=== PATIENT | female | born 1935 | race Two or more races ===

== ENCOUNTER 2018-03-18 14:18 | Outpatient (CLI) | payer OTHER ==
[~2018-03-18 14:18] MED LIST: ARICEPT10 MG PO; BENADRYL50 MG PO; BRAIN MIGHT-DH1 EACH; DEPAKOTE ER250 MG PO; RESTORIL15 M1 PO; VIBATIV750 MG PO; ZYPREXA10 MG PO
== END 2018-03-18 17:00 | disposition home or self-care (01) ==
LOC: TOM 14:18
DX: F31.0 Bipolar disorder, current episode hypomanic (principal); Z28.3 Underimmunization status; I69.30 Unspecified sequelae of cerebral infarction

== ENCOUNTER 2018-12-23 09:09 | Outpatient (CLI) | payer OTHER | END 2018-12-23 09:11 | disposition home or self-care (01) | LOC: TOM 09:09 | DX: F31.2 Bipolar disorder, current episode manic severe with psychotic features (principal); G30.0 Alzheimer's disease with early onset; G26 Extrapyramidal and movement disorders in diseases classified elsewhere ==

== ENCOUNTER 2019-10-24 09:30 | Outpatient (CLI) | payer OTHER | END 2019-10-24 15:00 | disposition home or self-care (01) | LOC: MRI 09:30 | DX: R47.01 Aphasia (principal); F01.51 Vascular dementia, unspecified severity, with behavioral disturbance; I63.81 Other cerebral infarction due to occlusion or stenosis of small artery | CPT/HCPCS: 70551 ==

== ENCOUNTER 2020-12-18 21:55 | Inpatient (IN) | payer OTHER ==
[~2020-12-18] VITALS: Wt 5.0 kg
[2020-12-18] MEDS ORDERED: PRE PROTEIN (22:22)
[2020-12-18] MEDS ORDERED: VASOFLEX D1 CA1 EACH (22:22)
[2020-12-18] MEDS ORDERED: CAPOTEN12.5 MG (22:22)
[2020-12-18] MEDS ORDERED: CARVEDILOL6.25 MG (22:22)
[2020-12-18] MEDS ORDERED: HYDROCHLOROTH12.5 MG (22:23)
[2020-12-18] MEDS ORDERED: SERTRALINE20 MG/1 ML (22:23)
[2020-12-18] MEDS ORDERED: ELIQUIS5 MG (22:23)
--- NOTE | 2020-12-18 22:24 | NUR ---
SE RECIBE PTE EN AMBULANCIA ,DESORIENTADA ,OXIGENANDO 82 % SE AUTO MUTILA,TIENE LOS OJOS ROJOS,REFIEREN PARAMEDICOS QUE ESTABA [place] POR LA NARIZ,LLEGO VCANALIZADA MANO IZQUIERDA.
--- NOTE | 2020-12-18 22:52 | NUR ---
SE RECIBE PTE FEMENINA ALERTA Y DESORIENTADA ACOMPANADA DE FAMILOIAR,ESTA LLEGA EN AMBULANCIA Y ES EVALUADA POR ,SE ORIENTA A FAMILIAR SOBRE ORDEN MEDICA,SE JAGDEEP MUESTRAS Y SE ENVIAN A LABORATORIO,SE CABALIZA Y COLOCA H/L PATENTE ARCHIE DE EDEMA Y EBNROJECIMIENT,SE OBSERVA A PTE SANGRADO SECO EN LA BOCA Y SE LIMPIA ,SE REALIZA X RAY,SE COLOCA BARNES SIGUIENDO MEDIDAS ASEPTICAS, SE CONECTA A MONITOR CARDIACO CDONSTANTE Y OXIMETRIA CONTINUA,FAMILIAR DE PTE FIRMA DNI Y DNR,SE MANTIENE A PTE EN OBSERVACION POR CAMBIOS.
--- NOTE | 2020-12-18 23:50 | NUR ---
SE RECIBE PTE FEMENAI DE 85 YRS ALERTA CONCIETNE Y TRANQUILA EN CAMA EN LA UNIDAD DE CHEST PAIN CONECTADA A MONITOR CARDICO Y OXIMENTRIA. PTE SE RECIBE CON H/L PANTENTE EN ANTEBRASO SANDRA. CANULA NASAL A 3 LTRS.SE OBSERVA PTE CON ALZHEIMERAVANZADO ,PULMONIA POR ASPIRACION EN EL HOGAR DONDE RECIDE. SE OBNSERVA PTE RESTRINGIDA X 2 CON CONSENTIMIENTO FIRMADO.SE COMIENZA EN ANTIBIOTICO DE ROCEPHING 1 GR. IV Y SE COMIENZAEN .9NSS A 75 ML HRS, SE LE NOTIFICA A MSCHACORTAS TERAPIASTA RESPIRATORIA LA ORDEN DE TERAPIA Y ABG'S . SE LE SUBCIONA EN VARIAS OCASIONES Y SE OBSERVA SECRECIONES CON SRI BRILLANTE Y CUOAGULOS. SE MANTIENE BAJO OBSERVACION POR CAMBIOS.
--- NOTE | 2020-12-18 23:58 | NUR ---
SE OBSERVA PTE CON FOLIE CATHTE CON UN OUPUT DE COLOR AMARILLO MEÑO. SE MANTIENE BAJO OBSERVACION.
--- NOTE | 2020-12-19 00:26 | NUR ---
SE LE CONECTA A NON-REBREDIN MASK A100% POR ORDEN MEDICA. DEL DR.MORALES DE LA PAZ.SE MANTIENE BAJO OBSERVACION POR CAMBIOS
[2020-12-24] MEDS ORDERED: ARICEPT10 MG PO (09:21)
[2020-12-24] MEDS ORDERED: LIPITOR20 MG PO (09:22)
[2020-12-24] MEDS ORDERED: CARVEDILOL6.25 MG PO (09:22)
[2020-12-24] MEDS ORDERED: ST. JOSEPH ASPI81 M2 PO (09:23)
[2020-12-24] MEDS ORDERED: DEPAKOTE ER250 MG PO (09:23)
[2020-12-24] MEDS ORDERED: ZYPREXA10 MG PO (09:24)
[2020-12-24] MEDS ORDERED: TOBRADEX EYE DR10 ML OP (09:25)
[2020-12-24] MEDS ORDERED: PRE PROTEIN GT (09:26)
== END 2020-12-24 16:51 | DRG 178 ==
LOC: ER 21:55 → MEDI 12-19 00:46
PROVIDERS: ADMIT Internal Medicine Hematology & Oncology; ATTEND Internal Medicine Hematology & Oncology
PROC: 30233N1 Transfusion of Nonautologous Red Blood Cells into Peripheral Vein, Percutaneous Approach (ICD-10-PCS; principal; 2020-12-19)
PROC: 02HV33Z Insertion of Infusion Device into Superior Vena Cava, Percutaneous Approach (ICD-10-PCS; 2020-12-19)
PROC: 4A12X4Z Monitoring of Cardiac Electrical Activity, External Approach (ICD-10-PCS; 2020-12-19)
PROC: 0DH63UZ Insertion of Feeding Device into Stomach, Percutaneous Approach (ICD-10-PCS; 2020-12-20)
PROC: 3E0G76Z Introduction of Nutritional Substance into Upper GI, Via Natural or Artificial Opening (ICD-10-PCS; 2020-12-21)
PROC: B24BYZZ Ultrasonography of Heart with Aorta using Other Contrast (ICD-10-PCS; 2020-12-21)
DX: J69.8 Pneumonitis due to inhalation of other solids and liquids (principal); D68.32 Hemorrhagic disorder due to extrinsic circulating anticoagulants; D62 Acute posthemorrhagic anemia; R04.0 Epistaxis; I69.391 Dysphagia following cerebral infarction; R13.10 Dysphagia, unspecified; R09.02 Hypoxemia; E86.0 Dehydration; I10 Essential (primary) hypertension; G30.1 Alzheimer's disease with late onset; F02.80 Dementia in other diseases classified elsewhere, unspecified severity, without behavioral disturbance, psychotic disturbance, mood disturbance, and anxiety; Z20.822 Contact with and (suspected) exposure to COVID-19

== ENCOUNTER 2021-01-28 17:20 | Inpatient (IN) | payer OTHER ==
[~2021-01-28] VITALS: Ht 160 cm
[~2021-01-28 17:20] MED LIST changes: +CAPOTEN12.5 MG; +CARVEDILOL6.25 MG; +CARVEDILOL6.25 MG PO; +ELIQUIS5 MG; +HYDROCHLOROTH12.5 MG; +LIPITOR20 MG PO; +PRE PROTEIN; +PRE PROTEIN GT; +SERTRALINE20 MG/1 ML; +ST. JOSEPH ASPI81 M2 PO; +TOBRADEX EYE DR10 ML OP; +VASOFLEX D1 CA1 EACH
--- NOTE | 2021-01-28 17:39 | NUR ---
SE RECIBE PACIENTE ALERTA, LLEGA EN AMBULANCIA ACOMPANADO DE PERSONAL DE AMBULANCIA REFIEREN TRAEN PARA PONER PEG , QUE SE ARRANCO, SE ESTIMAN S/V SE UBICA EN YOVANNY # 13 CON BARRANDAS ELEVADAS A NIVEL MAS BAJO. PTE ESTA DAVON.
[2021-01-31] MEDS ORDERED: BENADRYL50 MG PO (16:53)
[2021-01-31] MEDS ORDERED: ARICEPT10 MG PO (16:54)
[2021-01-31] MEDS ORDERED: LIPITOR20 MG PO (16:55)
[2021-01-31] MEDS ORDERED: ZYPREXA10 MG PO (16:55)
[2021-01-31] MEDS ORDERED: ST. JOSEPH ASPI81 M2 PO (16:55)
[2021-01-31] MEDS ORDERED: Depakote 250MG DR TA PO (16:55)
[2021-01-31] MEDS ORDERED: RESTORIL15 MG PO (16:56)
== END 2021-01-31 18:52 | disposition home or self-care (01) | DRG 395 ==
LOC: ER 17:20 → MEDI 20:39
PROVIDERS: ADMIT Internal Medicine Hematology & Oncology; ATTEND Internal Medicine Hematology & Oncology
PROC: 0DH63UZ Insertion of Feeding Device into Stomach, Percutaneous Approach (ICD-10-PCS; principal; 2021-01-29)
DX: K94.23 Gastrostomy malfunction (principal); G30.8 Other Alzheimer's disease; F02.80 Dementia in other diseases classified elsewhere, unspecified severity, without behavioral disturbance, psychotic disturbance, mood disturbance, and anxiety; I10 Essential (primary) hypertension; D72.828 Other elevated white blood cell count; R13.19 Other dysphagia; Z20.822 Contact with and (suspected) exposure to COVID-19

== ENCOUNTER 2021-04-26 11:16 | Inpatient (IN) | payer OTHER ==
[~2021-04-26] VITALS: Ht 152.4 cm; Wt 54.4 kg
[~2021-04-26 11:16] MED LIST changes: +Depakote 250MG DR TA PO; +RESTORIL15 MG PO
[2021-04-26] MEDS ORDERED: DONEPEZIL HCL10 MG PO (11:27)
[2021-04-26] MEDS ORDERED: DIVALPROEX SOD250 MG PO (11:27)
[2021-04-26] MEDS ORDERED: ATORVASTATIN CA20 MG PO (11:27)
[2021-04-26] MEDS ORDERED: OLANZAPINE2.5 MG PO (11:27)
[2021-04-26] MEDS ORDERED: CLOPIDOGREL BIS75 MG PO (11:28)
[2021-04-26] MEDS ORDERED: CARVEDILOL6.25 M1 PO (11:30)
--- NOTE | 2021-04-26 11:32 | NUR ---
SE RECIBE PACIENTE ALERTA, EN AMBULANCIA REFIERE PARAMEDICO REFIERE SE NANCY TUBO DE GASTROSTOMIA, EN LA MADRUGADA Y PRESENTO EPISODIO DE VOPMITO SE ESTIMAN S/V SE UBICA EN AREA DE OBSERVACION YOVANNY # 13
--- NOTE | 2021-04-26 11:50 | NUR ---
PTE ADMITIDA POR EL DR TATE
[2021-05-02] MEDS ORDERED: DONEPEZIL HCL10 MG PO (18:39)
[2021-05-02] MEDS ORDERED: BENADRYL50 MG PO (18:39)
[2021-05-02] MEDS ORDERED: ATORVASTATIN CA20 MG PO (18:40)
[2021-05-02] MEDS ORDERED: CARVEDILOL6.25 M1 PO (18:41)
[2021-05-02] MEDS ORDERED: ST. JOSEPH ASPI81 M2 PO (18:41)
[2021-05-02] MEDS ORDERED: DIVALPROEX SOD250 MG PO (18:42)
[2021-05-02] MEDS ORDERED: RESTORIL15 MG PO (18:42)
[2021-05-02] MEDS ORDERED: PRE PROTEIN GT (18:44)
[2021-05-02] MEDS ORDERED: TOBRADEX EYE DR10 ML OP (18:44)
== END 2021-05-02 23:01 | disposition home or self-care (01) | DRG 326 ==
LOC: ER 11:16 → MEDI 13:14
PROVIDERS: ADMIT Internal Medicine Hematology & Oncology; ATTEND Internal Medicine Hematology & Oncology
PROC: CB2YYZZ Tomographic (Tomo) Nuclear Medicine Imaging of Respiratory System using Other Radionuclide (ICD-10-PCS; 2021-04-26)
PROC: 0DP64UZ Removal of Feeding Device from Stomach, Percutaneous Endoscopic Approach (ICD-10-PCS; principal; 2021-04-30)
PROC: 0DH63UZ Insertion of Feeding Device into Stomach, Percutaneous Approach (ICD-10-PCS; 2021-04-30)
DX: K94.23 Gastrostomy malfunction (principal); A41.89 Other specified sepsis; N39.0 Urinary tract infection, site not specified; R13.19 Other dysphagia; I10 Essential (primary) hypertension; Z20.822 Contact with and (suspected) exposure to COVID-19; E86.0 Dehydration; E87.5 Hyperkalemia; G30.8 Other Alzheimer's disease; F02.80 Dementia in other diseases classified elsewhere, unspecified severity, without behavioral disturbance, psychotic disturbance, mood disturbance, and anxiety; Z74.01 Bed confinement status; B95.2 Enterococcus as the cause of diseases classified elsewhere

== ENCOUNTER 2021-07-02 10:58 | Inpatient (IN) | payer OTHER ==
[~2021-07-02] VITALS: Ht 157.5 cm; Wt 54.4 kg
[~2021-07-02 10:58] MED LIST changes: +ATORVASTATIN CA20 MG PO; +CARVEDILOL6.25 M1 PO; +CLOPIDOGREL BIS75 MG PO; +DIVALPROEX SOD250 MG PO; +DONEPEZIL HCL10 MG PO; +OLANZAPINE2.5 MG PO
[2021-07-02] MEDS ORDERED: GOCOVRI68.5 MG (11:27)
[2021-07-02] MEDS ORDERED: PEPCID AC20 MG (11:27)
[2021-07-02] MEDS ORDERED: DEPAKOTE ER250 MG PO (11:29)
[2021-07-02] MEDS ORDERED: CARVEDILOL6.25 MG (11:29)
[2021-07-02] MEDS ORDERED: ZYPREXA20 MG (11:30)
[2021-07-02] MEDS ORDERED: ARICEPT10 MG PO (11:30)
[2021-07-02] MEDS ORDERED: SYSTANE GEL EYE10 ML (11:31)
[2021-07-04] MEDS ORDERED: BENADRYL50 MG PO (18:09)
[2021-07-04] MEDS ORDERED: ATORVASTATIN CA20 MG PO (18:09)
[2021-07-04] MEDS ORDERED: ARICEPT10 MG PO (18:09)
[2021-07-04] MEDS ORDERED: CARVEDILOL6.25 MG PO (18:10)
[2021-07-04] MEDS ORDERED: ST. JOSEPH ASPI81 M2 PO (18:10)
[2021-07-04] MEDS ORDERED: DEPAKOTE ER250 MG PO (18:11)
[2021-07-04] MEDS ORDERED: RESTORIL15 MG PO (18:11)
[2021-07-04] MEDS ORDERED: PEPCID AC20 MG PO (18:12)
[2021-07-04] MEDS ORDERED: PRE PROTEIN GT (18:12)
== END 2021-07-04 20:30 | disposition home or self-care (01) | DRG 327 ==
LOC: ER 10:58 → SEC-K 13:05 → MEDJ 17:19
PROVIDERS: ADMIT Internal Medicine Hematology & Oncology; ATTEND Internal Medicine Hematology & Oncology
PROC: 0DP64UZ Removal of Feeding Device from Stomach, Percutaneous Endoscopic Approach (ICD-10-PCS; principal; 2021-07-02)
PROC: 0DH63UZ Insertion of Feeding Device into Stomach, Percutaneous Approach (ICD-10-PCS; 2021-07-02)
DX: K94.23 Gastrostomy malfunction (principal); E44.0 Moderate protein-calorie malnutrition; R13.19 Other dysphagia; I10 Essential (primary) hypertension; Z74.01 Bed confinement status; E86.0 Dehydration; E87.8 Other disorders of electrolyte and fluid balance, not elsewhere classified; Z20.822 Contact with and (suspected) exposure to COVID-19; G30.1 Alzheimer's disease with late onset; F02.80 Dementia in other diseases classified elsewhere, unspecified severity, without behavioral disturbance, psychotic disturbance, mood disturbance, and anxiety

== ENCOUNTER 2021-07-09 22:45 | Inpatient (IN) | payer OTHER ==
[~2021-07-09] VITALS: Ht 162.6 cm; Wt 54.4 kg
[~2021-07-09 22:45] MED LIST changes: +GOCOVRI68.5 MG; +PEPCID AC20 MG; +PEPCID AC20 MG PO; +SYSTANE GEL EYE10 ML; +ZYPREXA20 MG
--- NOTE | 2021-07-09 23:02 | NUR ---
PTE SE RECIBE POR PROBLEMA CON LA GASTROSTOMY REFIERE PARAMEDICO Y FAMILIAR.
[2021-07-13] MEDS ORDERED: ATORVASTATIN CA20 MG PO (10:25)
[2021-07-13] MEDS ORDERED: BENADRYL50 MG PO (10:25)
[2021-07-13] MEDS ORDERED: CARVEDILOL6.25 MG PO (10:25)
[2021-07-13] MEDS ORDERED: ARICEPT10 MG PO (10:25)
[2021-07-13] MEDS ORDERED: GOCOVRI68.5 MG PO (10:26)
[2021-07-13] MEDS ORDERED: DEPAKOTE ER250 MG PO (10:26)
[2021-07-13] MEDS ORDERED: ST. JOSEPH ASPI81 M2 PO (10:26)
[2021-07-13] MEDS ORDERED: HALOPERIDOL2 MG PO (10:27)
[2021-07-13] MEDS ORDERED: RESTORIL15 MG PO (10:28)
== END 2021-07-13 14:17 | DRG 394 ==
LOC: ER 22:45 → SURH 07-10 00:03 → SEC-K 07-10 00:03 → SURH 07-10 01:07
PROVIDERS: ADMIT Internal Medicine Hematology & Oncology; ATTEND Internal Medicine Hematology & Oncology
PROC: 0DH63UZ Insertion of Feeding Device into Stomach, Percutaneous Approach (ICD-10-PCS; principal; 2021-07-11)
DX: K94.23 Gastrostomy malfunction (principal); N39.0 Urinary tract infection, site not specified; E44.0 Moderate protein-calorie malnutrition; Y83.8 Other surgical procedures as the cause of abnormal reaction of the patient, or of later complication, without mention of misadventure at the time of the procedure; E86.0 Dehydration; I69.391 Dysphagia following cerebral infarction; G30.1 Alzheimer's disease with late onset; F02.80 Dementia in other diseases classified elsewhere, unspecified severity, without behavioral disturbance, psychotic disturbance, mood disturbance, and anxiety; B96.20 Unspecified Escherichia coli [E. coli] as the cause of diseases classified elsewhere

== ENCOUNTER 2021-10-19 20:55 | Inpatient (IN) | payer OTHER ==
[~2021-10-19] VITALS: Ht 152.4 cm; Wt 63.5 kg
[~2021-10-19 20:55] MED LIST changes: +GOCOVRI68.5 MG PO; +HALOPERIDOL2 MG PO
[2021-10-21] MEDS ORDERED: OLANZAPINE2.5 MG (08:59)
[2021-10-29] MEDS ORDERED: AMOX250 GT (17:35)
[2021-10-29] MEDS ORDERED: ST. JOSEPH ASPI81 M2 PO (17:41)
[2021-10-29] MEDS ORDERED: CARVEDILOL6.25 MG PO (17:41)
[2021-10-29] MEDS ORDERED: GOCOVRI68.5 MG PO (17:41)
[2021-10-29] MEDS ORDERED: HALOPERIDOL2 MG PO (17:41)
[2021-10-29] MEDS ORDERED: DIVALPROEX SOD250 M1 PO (17:41)
[2021-10-29] MEDS ORDERED: ARICEPT10 MG PO (17:41)
[2021-10-29] MEDS ORDERED: NEO-POLYCIN EY3.5 GM OP (17:41)
[2021-10-29] MEDS ORDERED: RESTORIL15 MG PO (17:41)
[2021-10-29] MEDS ORDERED: ATORVASTATIN CA20 MG PO (17:41)
[2021-10-29] MEDS ORDERED: BENADRYL25 MG PO (17:41)
[2021-10-29] MEDS ORDERED: PROTEINEX-18 LI30 ML PO (17:41)
== END 2021-10-29 22:07 | DRG 689 ==
LOC: ER 20:55 → SURH 23:44
PROVIDERS: ADMIT Internal Medicine Hematology & Oncology; ATTEND Internal Medicine Hematology & Oncology
PROC: BW24YZZ Computerized Tomography (CT Scan) of Chest and Abdomen using Other Contrast (ICD-10-PCS; 2021-10-19)
PROC: 02HV33Z Insertion of Infusion Device into Superior Vena Cava, Percutaneous Approach (ICD-10-PCS; 2021-10-21)
PROC: 0HBQXZX Excision of Finger Nail, External Approach, Diagnostic (ICD-10-PCS; principal; 2021-10-26)
DX: N39.0 Urinary tract infection, site not specified (principal); A41.89 Other specified sepsis; E87.0 Hyperosmolality and hypernatremia; F31.89 Other bipolar disorder; L02.511 Cutaneous abscess of right hand; E44.0 Moderate protein-calorie malnutrition; B35.1 Tinea unguium; B96.4 Proteus (mirabilis) (morganii) as the cause of diseases classified elsewhere; L03.011 Cellulitis of right finger; L89.159 Pressure ulcer of sacral region, unspecified stage; R13.19 Other dysphagia; E87.6 Hypokalemia; R00.0 Tachycardia, unspecified; D72.828 Other elevated white blood cell count; H01.006 Unspecified blepharitis left eye, unspecified eyelid; H01.003 Unspecified blepharitis right eye, unspecified eyelid; I10 Essential (primary) hypertension; G30.8 Other Alzheimer's disease; R41.82 Altered mental status, unspecified; E11.65 Type 2 diabetes mellitus with hyperglycemia; Z79.4 Long term (current) use of insulin; F02.80 Dementia in other diseases classified elsewhere, unspecified severity, without behavioral disturbance, psychotic disturbance, mood disturbance, and anxiety; E86.0 Dehydration; Z74.01 Bed confinement status; Z93.1 Gastrostomy status; Z20.822 Contact with and (suspected) exposure to COVID-19

== ENCOUNTER 2021-12-23 04:20 | Inpatient (IN) | payer OTHER ==
[~2021-12-23] VITALS: Ht 154.9 cm; Wt 74.8 kg
[~2021-12-23 04:20] MED LIST changes: +AMOX250 GT; +BENADRYL25 MG PO; +DIVALPROEX SOD250 M1 PO; +NEO-POLYCIN EY3.5 GM OP; +OLANZAPINE2.5 MG; +PROTEINEX-18 LI30 ML PO
[2022-01-14] MEDS ORDERED: ST. JOSEPH ASPI81 M2 PO ×2 (09:02)
[2022-01-14] MEDS ORDERED: HALOPERIDOL2 MG PO ×2 (09:02)
[2022-01-14] MEDS ORDERED: ATORVASTATIN CA20 MG PO ×2 (09:02)
[2022-01-14] MEDS ORDERED: PROTEINEX-18 LI30 ML PO ×2 (09:02)
[2022-01-14] MEDS ORDERED: CARVEDILOL6.25 MG PO ×2 (09:02)
== END 2022-01-14 12:26 | disposition home or self-care (01) | DRG 757 ==
LOC: ER 04:20 → SEC-K 06:43 → O/R 09:25 → SEC-K 09:26 → MEDJ 16:03 → MEDI 12-24 09:46
PROVIDERS: ADMIT Internal Medicine Hematology & Oncology; ATTEND Internal Medicine Hematology & Oncology
PROC: BW28ZZZ Computerized Tomography (CT Scan) of Head (ICD-10-PCS; principal; 2021-12-23)
PROC: 02HV33Z Insertion of Infusion Device into Superior Vena Cava, Percutaneous Approach (ICD-10-PCS; 2021-12-23)
PROC: 4A12X4Z Monitoring of Cardiac Electrical Activity, External Approach (ICD-10-PCS; 2021-12-23)
PROC: B54MZZZ Ultrasonography of Right Upper Extremity Veins (ICD-10-PCS; 2021-12-29)
DX: B37.41 Candidal cystitis and urethritis (principal); I63.89 Other cerebral infarction; G93.41 Metabolic encephalopathy; E87.0 Hyperosmolality and hypernatremia; E86.0 Dehydration; R09.02 Hypoxemia; I80.8 Phlebitis and thrombophlebitis of other sites; D72.828 Other elevated white blood cell count; G30.8 Other Alzheimer's disease; F02.80 Dementia in other diseases classified elsewhere, unspecified severity, without behavioral disturbance, psychotic disturbance, mood disturbance, and anxiety; E11.65 Type 2 diabetes mellitus with hyperglycemia; Z79.4 Long term (current) use of insulin; Z74.01 Bed confinement status; I10 Essential (primary) hypertension; Z20.822 Contact with and (suspected) exposure to COVID-19; B96.4 Proteus (mirabilis) (morganii) as the cause of diseases classified elsewhere; I69.391 Dysphagia following cerebral infarction

== ENCOUNTER 2022-01-15 11:21 | Inpatient (IN) | payer OTHER ==
[~2022-01-15] VITALS: Ht 167.6 cm; Wt 81.6 kg
[2022-01-18] MEDS ORDERED: HALOPERIDOL2 MG PO ×2 (20:06)
[2022-01-18] MEDS ORDERED: ST. JOSEPH ASPI81 M2 PO ×2 (20:06)
[2022-01-18] MEDS ORDERED: ATORVASTATIN CA20 MG PO ×2 (20:06)
[2022-01-18] MEDS ORDERED: PROTEINEX-18 LI30 ML PO ×2 (20:06)
[2022-01-18] MEDS ORDERED: CARVEDILOL6.25 MG PO ×2 (20:06)
== END 2022-01-18 22:23 | disposition home or self-care (01) | DRG 394 ==
LOC: ER 11:21 → MEDI 18:40
PROVIDERS: ADMIT Internal Medicine Hematology & Oncology; ATTEND Internal Medicine Hematology & Oncology
PROC: BW21YZZ Computerized Tomography (CT Scan) of Abdomen and Pelvis using Other Contrast (ICD-10-PCS; 2022-01-15)
PROC: 0DH63UZ Insertion of Feeding Device into Stomach, Percutaneous Approach (ICD-10-PCS; principal; 2022-01-16)
DX: K94.23 Gastrostomy malfunction (principal); F31.89 Other bipolar disorder; I69.891 Dysphagia following other cerebrovascular disease; R13.19 Other dysphagia; G30.1 Alzheimer's disease with late onset; F02.80 Dementia in other diseases classified elsewhere, unspecified severity, without behavioral disturbance, psychotic disturbance, mood disturbance, and anxiety; R10.13 Epigastric pain; Z74.01 Bed confinement status; Z20.822 Contact with and (suspected) exposure to COVID-19

== ENCOUNTER 2022-04-30 11:17 | Inpatient (IN) | payer OTHER ==
[~2022-04-30] VITALS: Ht 66 cm; Wt 77.1 kg
--- NOTE | 2022-04-30 11:43 | NUR ---
SE RECIBE PTE ALERTA, ESTABLE EN AMBULANCIA. PARAMEDICOS REFIEREN QUE LA TRAEN POR QUE SE NANCY EL TUBO DE LA GASTROSTOMIA
--- NOTE | 2022-04-30 13:03 | NUR ---
SE LE ORIENTA A PTE SOBRE TRATAMIENTO A SEGUIR, PTE DESORIENTADA. SE COLECTA MUESTRAS, SE CANALIZA Y SE ADMINISTRA MEDICAMENTO LISY ORDEN MEDICA UTILIZANDO MEDIDAS ASEPTICAS. PENDIENTE EKG
== END 2022-05-10 15:04 | disposition home or self-care (01) | DRG 326 ==
LOC: ER 11:17 → SEC-K 14:24 → SURH 05-01 15:22
PROVIDERS: ADMIT Internal Medicine Hematology & Oncology; ATTEND Internal Medicine Hematology & Oncology
PROC: 0DP64UZ Removal of Feeding Device from Stomach, Percutaneous Endoscopic Approach (ICD-10-PCS; principal; 2022-05-01)
PROC: 0DH63UZ Insertion of Feeding Device into Stomach, Percutaneous Approach (ICD-10-PCS; 2022-05-01)
PROC: 02HV33Z Insertion of Infusion Device into Superior Vena Cava, Percutaneous Approach (ICD-10-PCS; 2022-05-01)
DX: K94.23 Gastrostomy malfunction (principal); A41.89 Other specified sepsis; N39.0 Urinary tract infection, site not specified; E86.0 Dehydration; R13.19 Other dysphagia; I10 Essential (primary) hypertension; Z74.01 Bed confinement status; G30.9 Alzheimer's disease, unspecified; F02.80 Dementia in other diseases classified elsewhere, unspecified severity, without behavioral disturbance, psychotic disturbance, mood disturbance, and anxiety; B96.89 Other specified bacterial agents as the cause of diseases classified elsewhere; E11.9 Type 2 diabetes mellitus without complications; Z79.4 Long term (current) use of insulin; Z86.73 Personal history of transient ischemic attack (TIA), and cerebral infarction without residual deficits

== ENCOUNTER 2022-06-17 10:55 | Inpatient (IN) | payer OTHER ==
[~2022-06-17] VITALS: Ht 162.6 cm; Wt 54.4 kg
[2022-06-17] MEDS ORDERED: G-PREPROTEIN L473 ML PO (11:13)
[2022-06-17] MEDS ORDERED: DONEPEZIL HCL10 MG PO (11:13)
--- NOTE | 2022-06-17 11:15 | NUR ---
SE RECIBE PACIENTE ALERTA, ACOMPANADO DE PARAMEDICOS , PTE EN HOGAR SUSTITUTO, PTE SE REMUEVE TUBO PEG. SE ESTIMAN S/V SE UBICA EN AYE AREA DE OBSERVACION YOVANNY # 12
--- NOTE | 2022-06-17 11:48 | NUR ---
SE RECIBE FEMINA DESORIENTADA CON RESTRICCION, CAMILLAS CON BARANDAS ELEVADAS Y EN POSICION BAJA EVALUADA POR DR SAUCEDA QUIEN [place] MEDICO. SE COLECTAN MUESTRAS DE SRI BAJO MEDIDAS ASEPTICAS. PENDIENTE X-RAY Y ORINA, PTE TIENE PAMPER Y NO PUEDE COLECTAR LA MUESTRA POR SI DAVON.
[2022-06-17] MEDS ORDERED: CLOTRIMAZOLE-BE15 G1 (15:51)
[2022-06-17] MEDS ORDERED: BANOPHEN25 MG (15:51)
[2022-06-17] MEDS ORDERED: OMEPRAZOLE20 MG (15:51)
[2022-06-17] MEDS ORDERED: AMANTADINE50 MG/5 ML (15:52)
[2022-06-17] MEDS ORDERED: DIVALPROEX SOD250 M1 (15:52)
[2022-06-17] MEDS ORDERED: OLANZAPINE2.5 MG (15:52)
[2022-06-17] MEDS ORDERED: ATENOLOL50 MG (15:52)
[2022-06-17] MEDS ORDERED: RESTORIL15 MG (15:52)
[2022-06-21] MEDS ORDERED: DONEPEZIL HCL10 MG PO (16:46)
[2022-06-21] MEDS ORDERED: CARVEDILOL6.25 MG PO ×2 (16:46→17:01)
[2022-06-21] MEDS ORDERED: ATORVASTATIN CA20 MG PO (16:46)
[2022-06-21] MEDS ORDERED: HALOPERIDOL2 MG PO (16:47)
[2022-06-21] MEDS ORDERED: ST. JOSEPH ASPI81 M2 PO (16:47)
[2022-06-21] MEDS ORDERED: RESTORIL15 MG PO (16:48)
[2022-06-21] MEDS ORDERED: OMEPRAZOLE20 MG PO (16:49)
[2022-06-21] MEDS ORDERED: G-PREPROTEIN L473 ML PO (16:50)
[2022-06-21] MEDS ORDERED: BANOPHEN25 MG PO (17:01)
== END 2022-06-21 23:31 | disposition home or self-care (01) | DRG 920 ==
LOC: ER 10:55 → MEDJ 13:10
PROVIDERS: ADMIT Internal Medicine Hematology & Oncology; ATTEND Internal Medicine Hematology & Oncology
PROC: 0DP67UZ Removal of Feeding Device from Stomach, Via Natural or Artificial Opening (ICD-10-PCS; principal; 2022-06-19)
PROC: 0DH67UZ Insertion of Feeding Device into Stomach, Via Natural or Artificial Opening (ICD-10-PCS; 2022-06-19)
PROC: 3E0G76Z Introduction of Nutritional Substance into Upper GI, Via Natural or Artificial Opening (ICD-10-PCS; 2022-06-19)
DX: T85.528A Displacement of other gastrointestinal prosthetic devices, implants and grafts, initial encounter (principal); F31.11 Bipolar disorder, current episode manic without psychotic features, mild; K94.29 Other complications of gastrostomy; R13.19 Other dysphagia; I69.391 Dysphagia following cerebral infarction; K29.50 Unspecified chronic gastritis without bleeding; I10 Essential (primary) hypertension

== ENCOUNTER 2022-08-24 15:46 | Inpatient (IN) | payer OTHER ==
[~2022-08-24] VITALS: Ht 162.6 cm; Wt 68.0 kg
[~2022-08-24 15:46] MED LIST changes: +AMANTADINE50 MG/5 ML; +ATENOLOL50 MG; +BANOPHEN25 MG; +BANOPHEN25 MG PO; +CLOTRIMAZOLE-BE15 G1; +DIVALPROEX SOD250 M1; +G-PREPROTEIN L473 ML PO; +OMEPRAZOLE20 MG; +OMEPRAZOLE20 MG PO; +RESTORIL15 MG
[2022-08-26] MEDS ORDERED: CLOTRIMAZOLE-BE15 G1 (10:46)
[2022-09-10] MEDS ORDERED: CARVEDILOL6.25 MG PO (17:28)
[2022-09-10] MEDS ORDERED: ARICEPT10 MG PO (17:28)
[2022-09-10] MEDS ORDERED: BANOPHEN25 MG PO (17:28)
[2022-09-10] MEDS ORDERED: ATORVASTATIN CA20 MG PO (17:28)
[2022-09-10] MEDS ORDERED: HALOPERIDOL2 MG PO (17:29)
[2022-09-10] MEDS ORDERED: ST. JOSEPH ASPI81 M2 PO (17:29)
[2022-09-10] MEDS ORDERED: RESTORIL15 MG PO (17:29)
[2022-09-10] MEDS ORDERED: FAMOTIDINE20 MG PO (17:30)
== END 2022-09-10 22:21 | disposition home or self-care (01) | DRG 982 ==
LOC: ER 15:46 → MEDI 19:05 → MEDJ 19:05
PROVIDERS: ADMIT Internal Medicine Hematology & Oncology; ATTEND Internal Medicine Hematology & Oncology
PROC: BW28ZZZ Computerized Tomography (CT Scan) of Head (ICD-10-PCS; principal; 2022-08-24)
PROC: BW21ZZZ Computerized Tomography (CT Scan) of Abdomen and Pelvis (ICD-10-PCS; 2022-08-25)
PROC: 02HV33Z Insertion of Infusion Device into Superior Vena Cava, Percutaneous Approach (ICD-10-PCS; 2022-08-25)
PROC: 0DP63UZ Removal of Feeding Device from Stomach, Percutaneous Approach (ICD-10-PCS; 2022-08-28)
PROC: 0DH63UZ Insertion of Feeding Device into Stomach, Percutaneous Approach (ICD-10-PCS; 2022-08-28)
PROC: 3E0336Z Introduction of Nutritional Substance into Peripheral Vein, Percutaneous Approach (ICD-10-PCS; 2022-09-04)
PROC: 3E0F7GC Introduction of Other Therapeutic Substance into Respiratory Tract, Via Natural or Artificial Opening (ICD-10-PCS; 2022-09-06)
DX: J69.0 Pneumonitis due to inhalation of food and vomit (principal); F02.A2 Dementia in other diseases classified elsewhere, mild, with psychotic disturbance; F31.11 Bipolar disorder, current episode manic without psychotic features, mild; T85.528A Displacement of other gastrointestinal prosthetic devices, implants and grafts, initial encounter; K94.23 Gastrostomy malfunction; N39.0 Urinary tract infection, site not specified; T85.598A Other mechanical complication of other gastrointestinal prosthetic devices, implants and grafts, initial encounter; N20.0 Calculus of kidney; I10 Essential (primary) hypertension; E86.0 Dehydration; E11.9 Type 2 diabetes mellitus without complications; G30.1 Alzheimer's disease with late onset; R13.19 Other dysphagia; Z79.4 Long term (current) use of insulin; Z74.01 Bed confinement status; I69.391 Dysphagia following cerebral infarction; I69.320 Aphasia following cerebral infarction

== ENCOUNTER 2023-01-12 11:01 | Inpatient (IN) | payer OTHER ==
[~2023-01-12] VITALS: Ht 165.1 cm; Wt 54.4 kg
[~2023-01-12 11:01] MED LIST changes: +FAMOTIDINE20 MG PO
[2023-01-21] MEDS ORDERED: ST. JOSEPH ASPI81 M2 PO (18:48)
[2023-01-21] MEDS ORDERED: ATORVASTATIN CA20 MG PO (18:48)
[2023-01-21] MEDS ORDERED: CARVEDILOL6.25 MG PO (18:48)
[2023-01-21] MEDS ORDERED: BANOPHEN25 MG PO (18:48)
[2023-01-21] MEDS ORDERED: RESTORIL15 MG PO (18:48)
[2023-01-21] MEDS ORDERED: HALOPERIDOL2 MG PO (18:48)
[2023-01-21] MEDS ORDERED: ARICEPT10 MG PO (18:48)
[2023-01-21] MEDS ORDERED: G-PREPROTEIN L473 ML PO (18:49)
[2023-01-21] MEDS ORDERED: FAMOTIDINE20 MG PO (18:49)
== END 2023-01-21 20:03 | disposition home or self-care (01) | DRG 659 ==
LOC: ER 11:01 → MEDJ 16:41
PROVIDERS: Urology; ADMIT Internal Medicine Hematology & Oncology; ATTEND Internal Medicine Hematology & Oncology
PROC: BW21YZZ Computerized Tomography (CT Scan) of Abdomen and Pelvis using Other Contrast (ICD-10-PCS; 2023-01-13)
PROC: B030ZZZ Magnetic Resonance Imaging (MRI) of Brain (ICD-10-PCS; 2023-01-13)
PROC: 02HV33Z Insertion of Infusion Device into Superior Vena Cava, Percutaneous Approach (ICD-10-PCS; 2023-01-13)
PROC: BT1FZZZ Fluoroscopy of Left Kidney, Ureter and Bladder (ICD-10-PCS; 2023-01-14)
PROC: 0T913ZZ Drainage of Left Kidney, Percutaneous Approach (ICD-10-PCS; 2023-01-14)
PROC: 0T778DZ Dilation of Left Ureter with Intraluminal Device, Via Natural or Artificial Opening Endoscopic (ICD-10-PCS; principal; 2023-01-14 15:00)
DX: N39.0 Urinary tract infection, site not specified (principal); A41.9 Sepsis, unspecified organism; G92.8 Other toxic encephalopathy; I63.512 Cerebral infarction due to unspecified occlusion or stenosis of left middle cerebral artery; N17.9 Acute kidney failure, unspecified; F31.11 Bipolar disorder, current episode manic without psychotic features, mild; I69.951 Hemiplegia and hemiparesis following unspecified cerebrovascular disease affecting right dominant side; B96.89 Other specified bacterial agents as the cause of diseases classified elsewhere; E86.0 Dehydration; N13.2 Hydronephrosis with renal and ureteral calculous obstruction; I12.9 Hypertensive chronic kidney disease with stage 1 through stage 4 chronic kidney disease, or unspecified chronic kidney disease; N18.30 Chronic kidney disease, stage 3 unspecified; R09.02 Hypoxemia; E11.22 Type 2 diabetes mellitus with diabetic chronic kidney disease; Z74.01 Bed confinement status; Z79.4 Long term (current) use of insulin; G30.1 Alzheimer's disease with late onset; D63.1 Anemia in chronic kidney disease; R13.19 Other dysphagia
CPT/HCPCS: 70553

== ENCOUNTER 2023-05-25 10:26 | Inpatient (IN) | payer OTHER ==
[~2023-05-25] VITALS: Ht 162.6 cm; Wt 54.4 kg
[~2023-05-25 10:26] MED LIST changes: +ADULT LOW DOSE81 M1; +ADULT LOW DOSE81 M1 GT; +ATORVASTATIN CA20 MG; +ATORVASTATIN CA20 MG GT; +BANOPHEN25 MG GT; +CARVEDILOL6.25 MG GT; +DONEPEZIL HCL10 MG; +DONEPEZIL HCL10 MG GT; +G-PREPROTEIN L473 ML; +G-PREPROTEIN L473 ML GT; +GENTAMICIN SULFA5 ML; +HALOPERIDOL2 MG; +HALOPERIDOL2 MG GT; +PANTOPRAZOLE SO40 MG GT
[2023-05-25 11:55] LABS: ABG PH 7.443 (7.35-7.45); ABG pCO2 41.3 mmHg (35-45); BASE EXCESS 3.2 mmol/l; BICARBONATE 27.6 mmol/l (23-25); SaO2 92.9 %; Tco2 28.9 mmol/l; allen test SATISFACTORY; o2 21 %; puncture site RADIAL RIGHT
[2023-05-25 12:06] LABS: HEMATOCRIT 34.7 % (36.0-45.00); HEMOGLOBIN 11.5 g/dL (12.0-15.00); MEAN CORPUSCULAR HEMOGLOBIN 27.1 pg (27.00-32.0); PLATELET COUNT 457 K/uL (150-450); RED BLOOD COUNT 4.23 M/uL (4.00-6.00); RED CELL DISTRIBUTION WIDTH 16.3 % (11.5-14.5)
[2023-05-25 12:30] LABS: INR 1.02; PARTIAL THROMBOPLASTIN TIME 23.6 SECONDS (22.0-34.0); PROTHROMBIN TIME 10.7 SECONDS (9.0-11.5)
[2023-05-25 12:33] LABS: CALCIUM 9.8 mg/dL (8.5-10.1); CREATININE SERUM 0.55 mg/dL (0.55-1.02); GFR 104.8; POTASSIUM 4.13 mEq/L (3.5-5.1)
[2023-05-25 12:47] LABS: PH,URINE 6.5 (5.0-8.0); URINE APPEARANCE Clear; URINE BACTERIA 200.6 uL (0.0-1933); URINE BILIRRUBIN Negative (NEGATIVE); URINE BLOOD Small; URINE COLOR Yellow; URINE GLUCOSE Negative (NEGATIVE); URINE LEUKOCYTE Moderate; URINE NITRATE Negative; URINE RBC 81.9 uL (0.0-20.8); URINE WBC 128.5 uL (0.0-23.2)
[2023-05-25 13:02] LABS: URINE PROTEIN 300 (NEGATIVE)
[2023-05-26 08:13] LABS: HEMATOCRIT 35.2 % (36.0-45.00); HEMOGLOBIN 11.1 g/dL (12.0-15.00); MEAN CELL VOLUME 84.5 fL (80.00-100.00); MEAN CORPUSCULAR HEMOGLOBIN 26.7 pg (27.00-32.0); MEAN CORPUSCULAR HGB CONC 31.6 g/dl (32.0-36.0); PLATELET COUNT 451 K/uL (150-450); RED BLOOD COUNT 4.17 M/uL (4.00-6.00)
[2023-05-26 09:02] LABS: CALCIUM 10.2 mg/dL (8.5-10.1); CREATININE SERUM 0.53 mg/dL (0.55-1.02); GFR 109.38; MAGNESIUM 2.9 mg/dL (1.8-2.4); PHOSPHOROUS 3.9 mg/dL (2.5-4.9); POTASSIUM 5.03 mEq/L (3.5-5.1)
[2023-05-28 07:30] LABS: HEMATOCRIT 31.7 % (36.0-45.00); MEAN CELL VOLUME 83.8 fL (80.00-100.00); MEAN CORPUSCULAR HEMOGLOBIN 27.2 pg (27.00-32.0); MEAN CORPUSCULAR HGB CONC 32.4 g/dl (32.0-36.0); PLATELET COUNT 417 K/uL (150-450); RED BLOOD COUNT 3.78 M/uL (4.00-6.00); RED CELL DISTRIBUTION WIDTH 16.2 % (11.5-14.5)
[2023-05-28 07:55] LABS: CALCIUM 9.1 mg/dL (8.5-10.1); CREATININE SERUM 0.31 mg/dL (0.55-1.02); GFR 203.1; POTASSIUM 4.22 mEq/L (3.5-5.1)
[2023-05-28 07:57] LABS: HEMOGLOBIN 10.3 g/dL (12.0-15.00)
[2023-05-31 09:30] LABS: CALCIUM 8.8 mg/dL (8.5-10.1); GFR 228.42; POTASSIUM 4.12 mEq/L (3.5-5.1)
[2023-05-31 09:31] LABS: CREATININE SERUM 0.28 mg/dL (0.55-1.02)
[2023-06-02 07:30] LABS: HEMATOCRIT 31.6 % (36.0-45.00); HEMOGLOBIN 10.3 g/dL (12.0-15.00); MEAN CELL VOLUME 83.3 fL (80.00-100.00); MEAN CORPUSCULAR HEMOGLOBIN 27.2 pg (27.00-32.0); MEAN CORPUSCULAR HGB CONC 32.6 g/dl (32.0-36.0); PLATELET COUNT 367 K/uL (150-450); RED BLOOD COUNT 3.79 M/uL (4.00-6.00); RED CELL DISTRIBUTION WIDTH 16.1 % (11.5-14.5)
[2023-06-03 12:08] LABS: PH,URINE 7.5; URINE BILIRRUBIN NEGATIVE (NEGATIVE); URINE BLOOD LARGE; URINE GLUCOSE NEGATIVE (NEGATIVE); URINE LEUKOCYTE LARGE; URINE NITRATE NEGATIVE; URINE PROTEIN 30 (NEGATIVE); URINE UROBILINOGEN 0.2 E.U./dl
[2023-06-03 12:26] LABS: URINE APPEARANCE TURBID; URINE COLOR YELLOW
[2023-06-03 12:28] LABS: URINE BACTERIA MANY; URINE CRYSTALS FEW /HPF; URINE EPITHELIAL CELLS 0-4 /HPF; URINE WBC LOADED /hpf
[2023-06-06 09:07] LABS: CALCIUM 9.1 mg/dL (8.5-10.1); CREATININE SERUM 0.44 mg/dL (0.55-1.02); GFR 135.58; POTASSIUM 5.77 mEq/L (3.5-5.1)
[2023-06-06 13:58] LABS: HEMATOCRIT 29.5 % (36.0-45.00); HEMOGLOBIN 9.5 g/dL (12.0-15.00); MEAN CELL VOLUME 84.6 fL (80.00-100.00); MEAN CORPUSCULAR HEMOGLOBIN 27.4 pg (27.00-32.0); MEAN CORPUSCULAR HGB CONC 32.4 g/dl (32.0-36.0); PLATELET COUNT 299 K/uL (150-450); RED BLOOD COUNT 3.48 M/uL (4.00-6.00); RED CELL DISTRIBUTION WIDTH 16.8 % (11.5-14.5)
[2023-06-08 09:04] LABS: HEMATOCRIT 28.2 % (36.0-45.00); HEMOGLOBIN 9.3 g/dL (12.0-15.00); MEAN CELL VOLUME 84.5 fL (80.00-100.00); MEAN CORPUSCULAR HEMOGLOBIN 27.8 pg (27.00-32.0); MEAN CORPUSCULAR HGB CONC 32.9 g/dl (32.0-36.0); PLATELET COUNT 282 K/uL (150-450); RED BLOOD COUNT 3.33 M/uL (4.00-6.00); RED CELL DISTRIBUTION WIDTH 17.9 % (11.5-14.5)
[2023-06-08 09:09] LABS: CALCIUM 9.1 mg/dL (8.5-10.1); CREATININE SERUM 0.35 mg/dL (0.55-1.02); GFR 176.56; MAGNESIUM 2.5 mg/dL (1.8-2.4); POTASSIUM 4.25 mEq/L (3.5-5.1)
[2023-06-08 15:10] LABS: PH,URINE 5.5 (5.0-8.0); URINE APPEARANCE Turbid; URINE BILIRRUBIN Negative (NEGATIVE); URINE BLOOD Small; URINE COLOR Yellow; URINE GLUCOSE Negative (NEGATIVE); URINE LEUKOCYTE Large; URINE NITRATE Negative; URINE UROBILINOGEN 0.2 E.U./dl
[2023-06-08 15:14] LABS: URINE BACTERIA 3608.6 uL (0.0-1933); URINE EPITHELIAL CELLS 118.2 uL (0.0-38.8); URINE RBC 2721.9 uL (0.0-20.8)
[2023-06-08 15:29] LABS: URINE PROTEIN 100 (NEGATIVE); URINE WBC > 5548.3 uL (0.0-23.2)
[2023-06-10 08:15] LABS: HEMOGLOBIN 9.5 g/dL (12.0-15.00); MEAN CELL VOLUME 85.5 fL (80.00-100.00); MEAN CORPUSCULAR HEMOGLOBIN 28.1 pg (27.00-32.0); MEAN CORPUSCULAR HGB CONC 32.8 g/dl (32.0-36.0); PLATELET COUNT 218 K/uL (150-450); RED BLOOD COUNT 3.39 M/uL (4.00-6.00); RED CELL DISTRIBUTION WIDTH 18.4 % (11.5-14.5)
[2023-06-10 18:35] LABS: PH,URINE 5.5 (5.0-8.0); URINE APPEARANCE Cloudy; URINE BILIRRUBIN Negative (NEGATIVE); URINE BLOOD Trace; URINE COLOR Yellow; URINE GLUCOSE Negative (NEGATIVE); URINE LEUKOCYTE Large; URINE NITRATE Negative; URINE UROBILINOGEN 0.2 E.U./dl
[2023-06-10 18:36] LABS: URINE BACTERIA 254.5 uL (0.0-1933); URINE EPITHELIAL CELLS 15.7 uL (0.0-38.8); URINE RBC 87.2 uL (0.0-20.8); URINE WBC 1455.6 uL (0.0-23.2)
[2023-06-10 18:58] LABS: URINE PROTEIN 100 (NEGATIVE); URINE YEAST MANY /hpf
[2023-06-10 21:58] LABS: ABG PH 7.385 (7.35-7.45); ABG pCO2 42.4 mmHg (35-45); BASE EXCESS -0.3 mmol/l; BICARBONATE 24.8 mmol/l (23-25); SaO2 89.3 %; Tco2 26.1 mmol/l
[2023-06-10 22:34] LABS: o2 21 %; puncture site RADIAL LEFT
[2023-06-10 22:35] LABS: allen test SATISFACTORY
[2023-06-11 06:40] LABS: URINE APPEARANCE Turbid; URINE BACTERIA 3738.3 uL (0.0-1933); URINE BILIRRUBIN Negative (NEGATIVE); URINE BLOOD Moderate; URINE COLOR Yellow; URINE GLUCOSE Negative (NEGATIVE); URINE LEUKOCYTE Large; URINE NITRATE Negative; URINE RBC 2583.6 uL (0.0-20.8); URINE UROBILINOGEN 0.2 E.U./dl
[2023-06-11 07:36] LABS: HEMATOCRIT 31.1 % (36.0-45.00); MEAN CELL VOLUME 85.3 fL (80.00-100.00); MEAN CORPUSCULAR HEMOGLOBIN 27.9 pg (27.00-32.0); MEAN CORPUSCULAR HGB CONC 32.7 g/dl (32.0-36.0); RED BLOOD COUNT 3.65 M/uL (4.00-6.00); RED CELL DISTRIBUTION WIDTH 18.5 % (11.5-14.5)
[2023-06-11 07:45] LABS: URINE CRYSTALS NEGATIVE /HPF; URINE EPITHELIAL CELLS > 201.7 uL (0.0-38.8); URINE PROTEIN 100 (NEGATIVE); URINE WBC > 5548.3 uL (0.0-23.2)
[2023-06-11 07:47] LABS: URINE YEAST MANY /hpf
[2023-06-11 08:01] LABS: ALBUMIN 2.3 gm/dL (3.4-5.0); BILIRUBIN TOTAL 0.36 mg/dL (0.3-1.2); CALCIUM 9.8 mg/dL (8.5-10.1); CREATININE SERUM 0.56 mg/dL (0.55-1.02); GFR 102.64; GLOBULINA 4.3 G/DL (2.4-3.5); MAGNESIUM 2.5 mg/dL (1.8-2.4); POTASSIUM 4.36 mEq/L (3.5-5.1); TOTAL PROTEIN 6.6 gm/dL (6.4-8.2)
[2023-06-11 08:29] LABS: HEMOGLOBIN 10.2 g/dL (12.0-15.00); PLATELET COUNT 210 K/uL (150-450)
[2023-06-11 08:54] LABS: C-REACTIVE PROTEIN 3.21 MG/DL (0.00-0.29); PHOSPHOROUS 1.9 mg/dL (2.5-4.9)
[2023-06-13 08:31] LABS: HEMATOCRIT 34.5 % (36.0-45.00); HEMOGLOBIN 10.6 g/dL (12.0-15.00); MEAN CELL VOLUME 88.6 fL (80.00-100.00); MEAN CORPUSCULAR HEMOGLOBIN 27.1 pg (27.00-32.0); MEAN CORPUSCULAR HGB CONC 30.6 g/dl (32.0-36.0); PLATELET COUNT 344 K/uL (150-450); RED BLOOD COUNT 3.89 M/uL (4.00-6.00)
[2023-06-13 09:01] LABS: ALBUMIN 2.3 gm/dL (3.4-5.0); BILIRUBIN TOTAL 0.32 mg/dL (0.3-1.2); CALCIUM 9.8 mg/dL (8.5-10.1); MAGNESIUM 2.6 mg/dL (1.8-2.4); PHOSPHOROUS 2.5 mg/dL (2.5-4.9); POTASSIUM 4.75 mEq/L (3.5-5.1)
[2023-06-13 09:05] LABS: C-REACTIVE PROTEIN 2.38 MG/DL (0.00-0.29)
[2023-06-13 09:18] LABS: GFR 107.04
[2023-06-13 09:21] LABS: CREATININE SERUM 0.54 mg/dL (0.55-1.02)
[2023-06-13 09:24] LABS: GLOBULINA 4.3 G/DL (2.4-3.5); TOTAL PROTEIN 6.6 gm/dL (6.4-8.2)
== END 2023-06-13 18:28 | disposition expired | DRG 579 ==
LOC: ER 10:26 → SEC-K 16:04 → SURH 16:04
PROVIDERS: General Practice; Internal Medicine Infectious Disease; ADMIT Internal Medicine Hematology & Oncology; ATTEND Internal Medicine Hematology & Oncology
PROC: 0JD70ZZ Extraction of Back Subcutaneous Tissue and Fascia, Open Approach (ICD-10-PCS; principal; 2023-05-26)
PROC: BW21YZZ Computerized Tomography (CT Scan) of Abdomen and Pelvis using Other Contrast (ICD-10-PCS; 2023-05-27)
PROC: BR39ZZZ Magnetic Resonance Imaging (MRI) of Lumbar Spine (ICD-10-PCS; 2023-05-27)
PROC: 0JD70ZZ Extraction of Back Subcutaneous Tissue and Fascia, Open Approach (ICD-10-PCS; 2023-06-02)
PROC: 0TJ98ZZ Inspection of Ureter, Via Natural or Artificial Opening Endoscopic (ICD-10-PCS; 2023-06-02)
PROC: 0TP98DZ Removal of Intraluminal Device from Ureter, Via Natural or Artificial Opening Endoscopic (ICD-10-PCS; 2023-06-05)
PROC: 0TC78ZZ Extirpation of Matter from Left Ureter, Via Natural or Artificial Opening Endoscopic (ICD-10-PCS; 2023-06-05)
PROC: 0TP5X0Z Removal of Drainage Device from Kidney, External Approach (ICD-10-PCS; 2023-06-05)
PROC: 3E0F7GC Introduction of Other Therapeutic Substance into Respiratory Tract, Via Natural or Artificial Opening (ICD-10-PCS; 2023-06-06)
PROC: 0DP67UZ Removal of Feeding Device from Stomach, Via Natural or Artificial Opening (ICD-10-PCS; 2023-06-07)
PROC: 0DH63UZ Insertion of Feeding Device into Stomach, Percutaneous Approach (ICD-10-PCS; 2023-06-07)
PROC: 0JD70ZZ Extraction of Back Subcutaneous Tissue and Fascia, Open Approach (ICD-10-PCS; 2023-06-10)
PROC: BB24YZZ Computerized Tomography (CT Scan) of Bilateral Lungs using Other Contrast (ICD-10-PCS; 2023-06-10)
PROC: 4A12X4Z Monitoring of Cardiac Electrical Activity, External Approach (ICD-10-PCS; 2023-06-10)
PROC: BW40ZZZ Ultrasonography of Abdomen (ICD-10-PCS; 2023-06-11)
PROC: B246ZZZ Ultrasonography of Right and Left Heart (ICD-10-PCS; 2023-06-11)
DX: L89.154 Pressure ulcer of sacral region, stage 4 (principal); J96.01 Acute respiratory failure with hypoxia; I96 Gangrene, not elsewhere classified; L03.312 Cellulitis of back [any part except buttock and flank]; B37.49 Other urogenital candidiasis; N13.2 Hydronephrosis with renal and ureteral calculous obstruction; J98.11 Atelectasis; K94.23 Gastrostomy malfunction; I42.9 Cardiomyopathy, unspecified; I50.1 Left ventricular failure, unspecified; J91.8 Pleural effusion in other conditions classified elsewhere; F31.89 Other bipolar disorder; E11.622 Type 2 diabetes mellitus with other skin ulcer; E11.628 Type 2 diabetes mellitus with other skin complications; E86.0 Dehydration; E83.39 Other disorders of phosphorus metabolism; I11.0 Hypertensive heart disease with heart failure; B95.2 Enterococcus as the cause of diseases classified elsewhere; B95.62 Methicillin resistant Staphylococcus aureus infection as the cause of diseases classified elsewhere; B96.5 Pseudomonas (aeruginosa) (mallei) (pseudomallei) as the cause of diseases classified elsewhere; B95.1 Streptococcus, group B, as the cause of diseases classified elsewhere; B96.6 Bacteroides fragilis [B. fragilis] as the cause of diseases classified elsewhere; D50.8 Other iron deficiency anemias; K76.89 Other specified diseases of liver; G30.8 Other Alzheimer's disease; F02.80 Dementia in other diseases classified elsewhere, unspecified severity, without behavioral disturbance, psychotic disturbance, mood disturbance, and anxiety; F41.8 Other specified anxiety disorders; R13.19 Other dysphagia; Z66 Do not resuscitate; Z74.01 Bed confinement status; Z79.4 Long term (current) use of insulin
CPT/HCPCS: 72148